=== PATIENT | male | born 1995 | race Hispanic/Latino ===

== ENCOUNTER 2017-11-18 00:23 | Emergency (ER) | payer BC ==
[2017-11-18 00:38] VITALS: BMI 22.5
[2017-11-18 00:41] VITALS: RESP 16; O2SAT 100
--- NOTE | 2017-11-18 01:07 | ED PDOC ---
HPI: Trauma/Fall - HPI Time Seen by Provider: 11/18/17 00:44 Chief Complaint (Nursing): Trauma Chief Complaint (Provider): Head injury History Per: Patient, EMS History/Exam Limitations: intoxication Onset/Duration Of Symptoms: Mins Location Of Injury: Right: Head Additional Complaint(s): 21 year old male presents to the ED via EMS for alcohol intoxication and head injury prior to arrival. Patient admits to drinking alcohol all evening in [facility] bars but doesn't remember how he ended up in [place]. He doesn't remember what happened, how he fell, or where he fell. Patient has a head injury and laceration to scalp as well as pain near the laceration. There is no active bleeding from the scalp and patient denies any other complaints at this time. He denies chest pain and vomiting. Tetanus vaccination UTD with last tetanus shot given 2 years ago. History limited due to intoxication. PMD: none Past Medical History Reviewed: Historical Data, Nursing Documentation, Vital Signs Vital Signs: Last Vital Signs Temp 97.8 F 11/18/17 00:38 Pulse 92 H 11/18/17 00:38 Resp 16 11/18/17 00:38 BP 127/82 11/18/17 00:38 Pulse Ox 100 11/18/17 00:38 - Medical History PMH: No Chronic Diseases - Surgical History Other surgeries: varicocele surgery - Family History Family History: States: Unknown Family Hx - Allergies Allergies/Adverse Reactions: Allergies Allergy/AdvReac Type Severity Reaction Status Date / Time bee pollen Allergy ANAPHYLAXIS Verified 11/18/17 00:38 Review of Systems ROS Statement: Except As Marked, All Systems Reviewed And Found Negative Cardiovascular: Negative for: Chest Pain Gastrointestinal: Negative for: Vomiting Musculoskeletal: Positive for: Other (Head injury and laceration) Physical Exam - Reviewed Nursing Documentation Reviewed: Yes Vital Signs Reviewed: Yes - Physical Exam Appears: Positive for: Non-toxic, No Acute Distress Head Exam: Negative for: ATRAUMATIC (2 cm laceration to the occipital scalp on the right side with no active bleeding) Skin: Positive for: Normal Color, Warm, Dry Eye Exam: Positive for: Normal appearance, EOMI, PERRL ENT: Positive for: Normal ENT Inspection Neck: Positive for: Normal, Painless ROM Cardiovascular/Chest: Positive for: Regular Rate, Rhythm. Negative for: Murmur Respiratory: Positive for: Normal Breath Sounds. Negative for: Wheezing, Respiratory Distress Gastrointestinal/Abdominal: Positive for: Normal Exam, Soft. Negative for: Tenderness Extremity: Positive for: Normal ROM Neurologic/Psych: Positive for: Alert, Oriented (x3). Negative for: Motor/ Sensory Deficits - ECG O2 Sat by Pulse Oximetry: 100 (RA) Pulse Ox Interpretation: Normal Medical Decision Making Medical Decision Making: Initial Impression: Substance abuse and scalp laceration, r/o intracranial bleeding Initial Plan: --Head CT --Alcohol serum 02:37 CT head FINDINGS: Brain: Normal. No hemorrhage. No significant white matter disease. No edema. Ventricles: Normal. No ventriculomegaly. Bones/joints: Normal. No acute fracture. Sinuses: Normal as visualized. No acute sinusitis. Mastoid air cells: Normal as visualized. No mastoid effusion. Soft tissues: Normal. IMPRESSION: No acute findings. 02:56 Patient's symptoms have improved and has steady gait. Patient is stable for discharge and will be discharged with friends. Scribe Attestation: Documented by Nikolai Jay acting as a scribe for Kleber Alejandra MD. Provider Scribe Attestation: All medical record entries made by the Scribe were at my direction and personally dictated by me. I have reviewed the chart and agree that the record accurately reflects my personal performance of the history, physical exam, medical decision making, and the department course for this patient. I have also personally directed, reviewed, and agree with the discharge instructions and disposition. Disposition - Clinical Impression Clinical Impression: Head injury, Laceration of scalp - Patient ED Disposition Is Patient to be Admitted: No - Disposition Referrals: [facility] [Outside] Disposition: Routine/Home Disposition Time: 02:57 Condition: GOOD Additional Instructions: LAUREN CHOI, thank you for letting us take care of you today. Your provider was Kleber Alejandra MD and you were treated for FALL, HEAD INJURY. The emergency medical care you received today was directed at your acute symptoms. If you were prescribed any medication, please fill it and take as directed. It may take several days for your symptoms to resolve. Return to the Emergency Department if your symptoms worsen, do not improve, or if you have any other problems. Please contact your doctor or call one of the physicians/clinics you have been referred to that are listed on the Patient Visit Information form that is included in your discharge packet. Bring any paperwork you were given at discharge with you along with any medications you are taking to your follow up visit. Our treatment cannot replace ongoing medical care by a primary care provider outside of the emergency department. Thank you for allowing the [facility] team to be part of your care today. If you had an X-Ray or CT scan: A Radiologist will review the ED reading if any change in treatment is needed we will contact you. If you had a blood, urine, or wound culture: It will take several days for the results, if any change in treatment is needed we will contact you. If you had an STI test: It will take 48 hours for the results. Please call after 1 week if you have not heard back. Instructions: Wound Care (DC), Closed Head Injury (DC) Forms: [employer] (Lithuanian)
[2017-11-18 04:35] VITALS: BP 121/88; PULSE 88; TEMP 98.4
--- NOTE | 2017-11-18 08:01 | CT ---
Date of service: 11/18/2017 PROCEDURE: CT HEAD WITHOUT CONTRAST. HISTORY: head injury COMPARISON: None available. TECHNIQUE: Axial computed tomography images were obtained through the head/brain without intravenous contrast. Radiation dose: Total exam DLP = mGy-cm. This CT exam was performed using one or more of the following dose reduction techniques: Automated exposure control, adjustment of the mA and/or kV according to patient size, and/or use of iterative reconstruction technique. FINDINGS: HEMORRHAGE: No intracranial hemorrhage. BRAIN: No mass effect or edema. No atrophy or chronic microvascular ischemic changes. VENTRICLES: Unremarkable. No hydrocephalus. CALVARIUM: Unremarkable. PARANASAL SINUSES: Unremarkable as visualized. No significant inflammatory changes. MASTOID AIR CELLS: Unremarkable as visualized. No inflammatory changes. OTHER FINDINGS: None. IMPRESSION: Normal CT of the Head.
== END 2017-11-18 02:55 | disposition home or self-care (01) ==
LOC: H.ER 00:23
DX: F10.129 Alcohol abuse with intoxication, unspecified (principal); S01.01XA Laceration without foreign body of scalp, initial encounter; W19.XXXA Unspecified fall, initial encounter; Y92.89 Other specified places as the place of occurrence of the external cause
CPT/HCPCS: 70450; 99285; G0480